=== PATIENT | male | born 1955 | race Two or more races ===

== ENCOUNTER 2017-09-15 14:15 | Outpatient (CLI) | payer BC | END 2017-09-15 23:59 | disposition home or self-care (01) | LOC: WOU 14:15 | PROVIDERS: ATTEND Podiatrist Foot & Ankle Surgery | DX: B35.1 Tinea unguium (principal); L60.3 Nail dystrophy; B35.3 Tinea pedis | CPT/HCPCS: G0463 ==

== ENCOUNTER 2020-05-20 09:02 | Outpatient (CLI) | payer BC ==
[2020-05-20 10:03] LABS: BASOPHILS # (AUTO) 0.1 /CMM (0.0-0.2); BASOPHILS % (AUTO) 1.8 % (0.0-2.0); HEMATOCRIT 43 % (39-51); HEMOGLOBIN 14.9 g/dL (13.5-17.5); LYMPHOCYTES # (AUTO) 1.1 /CMM (0.8-4.8); LYMPHOCYTES % (AUTO) 27.7 % (20.0-44.0); MEAN CORPUSCULAR HGB CONC 34 g/dl (31.0-36.0); MEAN CORPUSCULAR VOLUME 96 fL (80-96); MONOCYTES # (AUTO) 0.4 /CMM (0.1-1.30); MONOCYTES % (AUTO) 8.9 % (2.0-12.0); NEUTROPHILS # (AUTO) 2.3 /CMM (1.8-8.9); NEUTROPHILS % (AUTO) 58.6 % (43.0-81.0); PLATELET COUNT (AUTO) 266 /CMM (150-450); RED BLOOD CELL COUNT(AUTO) 4.51 MIL/uL (4.5-6.0)
[2020-05-20 10:22] LABS: BILIRUBIN,TOTAL 0.5 mg/dL (0.2-1.0); CREATININE 0.8 mg/dL (0.6-1.3); PHOSPHORUS 3.3 mg/dL (2.5-4.9); POTASSIUM 4.1 mmol/L (3.5-5.1); TOTAL PROTEIN, SERUM 7.4 g/dL (6.4-8.2)
[2020-05-20 10:24] LABS: C-REACTIVE PROTEIN 0.6 mg/dL (0.0-0.9)
== END 2020-05-20 23:59 | disposition home or self-care (01) ==
LOC: MSC 09:02
PROVIDERS: ATTEND Internal Medicine
DX: R10.32 Left lower quadrant pain (principal); M25.521 Pain in right elbow; R10.2 Pelvic and perineal pain; I83.813 Varicose veins of bilateral lower extremities with pain; Q44.6 Cystic disease of liver; I70.90 Unspecified atherosclerosis
CPT/HCPCS: 36415; 73080-TC; 80053-TC; 82150-TC; 83690-TC; 83735-TC; 84100-TC; 85025-TC; 85652-TC; 86140-TC

== ENCOUNTER 2020-07-15 12:27 | Outpatient (CLI) | payer BC ==
[2020-07-15 13:26] LABS: PROSTATE SPECIFIC ANTIGEN SCR 1.06 ng/mL (0.00-4.00)
== END 2020-07-15 23:59 | disposition home or self-care (01) ==
LOC: LAB 12:27
PROVIDERS: ATTEND Internal Medicine
DX: N28.1 Cyst of kidney, acquired (principal); K76.89 Other specified diseases of liver
CPT/HCPCS: 36415; 84153-TC; 84154-TC

== ENCOUNTER 2020-09-02 09:06 | Outpatient (CLI) | payer BC | END 2020-09-02 23:59 | disposition home or self-care (01) | LOC: MSC 09:06 | PROVIDERS: ATTEND Internal Medicine | DX: R10.32 Left lower quadrant pain (principal); M54.16 Radiculopathy, lumbar region; M25.521 Pain in right elbow; I83.813 Varicose veins of bilateral lower extremities with pain; N28.1 Cyst of kidney, acquired; I70.90 Unspecified atherosclerosis; N20.0 Calculus of kidney ==